=== PATIENT | male | born 1960 | race Caucasian/White ===

== ENCOUNTER → 2025-04-11 17:32 | Outpatient (REF) | payer MEDICARE, SELFPAY | LOC: RAD 17:32 | PROVIDERS: ATTENDING PHYSICIAN Family Medicine | DX: M54.50 Low back pain, unspecified (principal); M54.9 Dorsalgia, unspecified; M25.551 Pain in right hip; M25.552 Pain in left hip | CPT/HCPCS: 72072; 72110; 73522 ==

== ENCOUNTER 2025-04-14 11:47 | Emergency (ER) | payer MEDICARE, SELFPAY ==
[2025-04-14 11:51] VITALS: BP 168/84
[2025-04-14 11:53] VITALS: BP 168/84; BMI 29.5
[2025-04-14 12:00] VITALS: BP 153/87
--- NOTE | 2025-04-14 12:24 | ED.GENMED ---
History of Present Illness
General
Chief Complaint: Back Pain
Source: patient and ambulance crew
Exam Limitations: none
Time Seen by Provider: 04/14/25 11:57
Nursing documentation reviewed up to this point in time: agreed with
History of Present Illness
History of Present Illness:
64-year-old male with no reported chronic medical issues who presents to the ER for evaluation of back pain. Patient reports symptoms have been ongoing for about 2 weeks. He reports that he started with mild symptoms but over the past 24 to 48
hours they have progressed. He says the symptoms started after a few days of 'overdoing it' with physical activity: He states that he golfed 18 holes and then the next day was playing with grandchildren/lifting them up and then followed that up
with another 9 holes golf after which he was very sore in his low back. He says that overall he has been sore his pain had been manageable and initially he went to a chiropractor for treatment but symptoms were not improving after about a week of
this and so he went to his primary doctor last week and had an x-ray which was reportedly unremarkable and was prescribed physical therapy. He says over the weekend he was doing some gentle stretching. This morning he woke up with more intense
pain and difficulty getting around due to intense pains across the low back and so he was laying on the ground in his living room to rest. He got up to go to the bathroom and felt pain significantly worsen and his called EMS to bring him to
the hospital.
He describes pain across the low back. Worse with any type of movement but especially quick movements or walking. He says that occasionally when the pain is at its most intense he will have some shooting pains into his thighs but does not have
radicular symptoms down towards the lower legs. He denies any weakness in the legs. He denies any saddle anesthesia. He denies any bowel or bladder incontinence. He denies any other acute complaints.
Review of Systems
Review of Systems
All Other Systems: ROS reviewed and negative except as documented in HPI and ROS
Constitutional: Denies fever
ABD/GI: Denies abdominal pain
Musculoskeletal: Reports back pain; Denies neck pain
Neurological: Denies weakness or numbness
Phy Exam
Physical Exam
Physical Exam:
General: Awake, alert, oriented x3; laying flat on his back appears relatively comfortable�with attempts at movement has significant pain
Head: Normocephalic, atraumatic
Eyes: Conjunctiva normal
Throat: Airway intact, handling secretions
Neck: Trachea midline
Lungs: Breathing comfortably without distress
Heart: Regular rate
Abd: Soft, non distended, nontender, no palpable mass
Back: No midline tenderness in thoracic or lumbar region, mild tenderness in the paraspinal musculature L5-S1 region bilaterally; significant pain with attempts at range of motion of the back
Neuro: Cranial nerves grossly intact, speech fluid; motor and sensory intact distal lower extremities bilaterally
Skin: No rash in area of concern
Extremities: No edema in extremities, equal pulses in all extremities
Scores
Heart Failure Risk
Heart Failure Risk Score: Not Applicable
Heart Score for Chest Pain Patients
STEMI patient?: Not applicable
Withdrawal Assessment of Alcohol
Withdrawal Assessment Completed?: Not applicable
Course
Orders/Labs/Results
Orders:
Orders
04/14/25 12:21
Acetaminophen [Tylenol] 1,000 mg PO NOW STA
Diazepam [Valium] 2 mg PO NOW STA
04/14/25 14:16
HYDROmorphone [Dilaudid] 0.5 mg IV NOW STA
04/14/25 15:20
Dexamethasone Sod Phosphate [Decadron] 10 mg IV NOW STA
Ketorolac [Toradol] 15 mg IV NOW STA
Pt Eval And Treat Urgent
Activity Level: With Assistance
04/14/25 15:24
Basic Metabolic Panel Urgent
Complete Blood Count/No Diff Urgent
04/14/25 15:30
Lidocaine [Lidocaine 4% Patch] 1 patch TOPICAL ONCE ONE
Apply Lidocaine patch(s) to:: low back
Abnormal Lab Results
04/14/25
15:24
Chloride 108 H mmol/L
(98-107)
BUN 22 H mg/dl
(9-20)
04/14/25 15:24
04/14/25 15:24
Vital Signs
Initial and Last Documented VS:
Initial Vital Signs
BP
168/84
04/14/25 11:51
Last Documented Vital Signs
Temp Pulse Resp BP Pulse Ox
36.6 C 66 19 128/79 96
04/14/25 11:53 04/14/25 16:45 04/14/25 16:15 04/14/25 16:12 04/14/25 16:45
MDM/Problems Addressed
Differential Diagnosis Includes:
Muscle strain, disc herniation/bulging disc, back spasms; no red flag symptoms or exam findings to suggest cauda equina syndrome; nothing by history to suggest nephrolithiasis, AAA or other emergent pathology
MDM/Problems Addressed:
64-year-old male presents for evaluation of back pain for the past 2 weeks worse this morning as described above. Hypertensive but otherwise normal vitals. Physical exam as above. He has no red flag history or exam points to suggest cauda equina
syndrome. Suspect that this is likely low back strain with back spasms this morning. He did take Motrin prior to arrival. Will treat with Valium and Tylenol. He already had an x-ray of the thoracic and lumbar spine as well as the hip 3 days
Roberto reviewed these results and they showed no acute osseous abnormalities but some degenerative changes. In my judgment no negation for further emergent imaging at this point in time; although he will likely need MRI at some point in the future
he has no emergent findings to suggest need for more urgent imaging. Will monitor closely reassess after the above.
Patient reports significant improvement with medications here in the emergency room. Will trial ambulation and reassess.
Patient with significant pain with ambulation could not even stand without significant spasming. Will provide additional pain medication and reassess.
Patient had some improvement with IV Dilaudid but still having significant pain. Dosed with IV Toradol, IV Decadron. Will have physical therapy evaluate after next round of medications.
Patient feeling better after Toradol and Decadron was able to get up with physical therapy although he did require some assistance. He says his pain is much better controlled. At this point stable for discharge. He has an appointment scheduled
for 04/29 with orthopedist. Prescribed steroid taper and medication for breakthrough pain although I advised him to use Tylenol and ibuprofen first. I also wrote a prescription for MRI. Contacted his primary doctor for follow-up. Patient very
comfortable with this plan. All questions answered.
Acute Exacerbation and/or Progression of Chronic Illness:
Acutely hypertensive likely pain related�will treat pain and continue to monitor but no additional emergent antihypertensives indicated.
Acute Exacerbation and/or Progression of Chronic Illness: HTN
*Radiology
Radiology exam reviewed: radiology read reviewed
*Pulse Oximetry
SaO2: 97
Oxygen Mode of Delivery: Room air
Patient hypoxic: no (97%)
*Critical Care Note
Total Time (30-74mins, 75-104mins- exclusive of procedures): Not Applicable
Data Reviewed
Source: patient and ambulance crew
Further Testing Considered But Not Given:
Considered need for emergent MRI as above
Patient Management
Discussion with other providers: PCP (Discussed with patient's primary care doctor)
ED Attending Note
-
Portions of this chart may have been created with voice recognition software.� Occasional wrong word or��sound alike� substitutions may have occurred due to the inherent limitations of voice recognition software.
Discharge Plan
Departure
Patient Disposition: Home (Routine Discharge)
Date of Disposition: 04/14/25
Time of Disposition: 17:09
Patient with high blood pressure during this ER visit?: Yes
Discharge Problem:
Low back pain
Instructions: Low Back Pain (DC)
Prescriptions:
New
prednisone 10 mg Tablet
See Rx Instructions .ROUTE .COMPLEX Qty: 45 0RF
Rx Instructions:
Take By Mouth:
50 mg daily x3 days, 40 mg daily x3 days,
30 mg daily x3 days, 20 mg daily x3 days,
10 mg daily x3 days
oxycodone 5 mg tablet
5 mg PO Q6H PRN (Reason: Pain) Qty: 20 0RF
lidocaine 5 % adhesive patch,medicated
1 patch topical DAILY Qty: 30 0RF
Referrals:
Judith Garzon MD [Family Provider, Family Practice] - Follow up in 5-7 days
Adriano Lopez MD [Active, Orthopedics] - Call in 1-3 days for appt
Activity Restrictions/Additional Instructions:
You should continue to use Tylenol and ibuprofen [id number] to help control your back pain. You should continue to alternate ice and heat and do gentle stretching. You should avoid any quick movements and you should avoid prolonged sitting
or lying and try to remain as active as possible. You should use muscle relaxer as needed as we discussed. You should also start the steroid pack and take it as prescribed. You should follow-up with your primary doctor within the next week for
reassessment after ER visit. If you feel things are worsening or you develop any new symptoms that are concerning to you please return to the ER for reassessment.
Thank you for visiting the Emergency Department at [facility].
1. Please schedule a follow up appointment as directed. Call first thing tomorrow morning to make an appointment.
2. If indicated, please take your medications as instructed and indicated on discharge paperwork.
3. If any of your symptoms do not improve, or persist, or become more severe within 6-12 hours, please return to the emergency department for further care.
4. Please return to the emergency department if you develop a headache, neck pain/stiffness, fever greater than 100.4F, chest pain, shortness of breath, persistent nausea, vomiting, slurred speech, difficulty walking, numbness/tingling, weakness,
signs of infection or any other symptoms that are worrisome to you.
Please call [phone] if you have any questions.
Interventions
Interventions:
*General Assessment Last Done: 04/14/25 11:53
*Neglect/Abuse Screening Last Done: 04/14/25 11:53
*ED- Fall Risk Assessment Last Done: 04/14/25 11:53
*ED COVID-19 Vaccine History Last Done: 04/14/25 11:53
ED-Musculoskeletal Assessment Last Done: 04/14/25 12:14
Discharge Date and Time
Print Language: CITIZEN [place]
[2025-04-14] MEDS: VALIUM 2 MG PO (12:49)
[2025-04-14] MEDS: TYLENOL 1000 MG PO (12:49)
[2025-04-14] MEDS: DILAUDID 0.5 MG IV (14:33)
[2025-04-14 15:00] VITALS: BP 137/81
[2025-04-14] MEDS: DECADRON 10 MG IV (15:28)
[2025-04-14] MEDS: TORADOL 15 MG IV (15:28)
[2025-04-14 15:43] LABS: Hematocrit 41.8 % (39.0-52.0); Hemoglobin 14.4 g/dL (13.0-18.0); Mean Corp Hgb Conc. 34.4 g/dL (33.0-37.0); Mean Corpuscular Volume 85.0 fL (80.0-94.0); Platelet Count 182 10^3/uL (130-400); Red Cell Dist. Width 12.7 % (11.5-14.5)
[2025-04-14 15:54] LABS: Blood Urea Nitrogen 22 mg/dl (9-20); Calcium 9.0 mg/dl (8.4-10.2); Carbon Dioxide 24 mmol/L (22-30); Chloride 108 mmol/L (98-107); Estimated Creatinine Clearance 77 ml/min; Glucose 99 mg/dl (70-99); Potassium 4.4 mmol/L (3.5-5.1); Sodium 136 mmol/L (135-145); eGFR > 60.00
[2025-04-14 16:00] VITALS: BP 149/135
[2025-04-14] MEDS: LIDOCAINE 4% PATCH 1 PATCH TOPICAL (16:08)
[2025-04-14 16:12] VITALS: BP 128/79
== END 2025-04-14 17:10 | disposition home or self-care (01) ==
LOC: EMR 11:47
PROVIDERS: EMERGENCY PHYSICIAN Emergency Medicine; FAMILY PHYSICIAN Family Medicine
DX: M54.50 Low back pain, unspecified (principal); I10 Essential (primary) hypertension
CPT/HCPCS: 99284; 96374; 96375 ×2; 80048; 85027